=== PATIENT | female | born 1985 | race Two or more races ===

== ENCOUNTER 2020-06-22 13:20 | Outpatient (CLI) | payer OTHER ==
--- NOTE | 2020-06-24 09:01 | MRI Report ---
PROCEDURE: Cervical Spine W/O INDICATIONS: LOW BACK PAIN TECHNIQUE: Noncontrast sagittal T1 spin echo and T2 fast spin echo, sagittal STIR, foraminal oblique sagittal T2 fast spin echo, and axial gradient echo or T2 fast spin echo through the cervical spine. COMPARISON: None. FINDINGS: Image quality: Excellent. Alignment and Curvature: Normal cervical spine vertebral body height and alignment. Bone Marrow: Marrow demonstrates normal overall signal. Spinal Cord: Visualized spinal cord has normal size and signal. No cerebellar tonsillar herniation. Regional Soft Tissues: No paravertebral masses. Prevertebral soft tissues are normal in thickness. C2-C3: Normal in appearance. C3-C4: Normal in appearance. C4-C5: Normal in appearance. C5-C6: Normal in appearance. C6-C7: Mild left neural foraminal stenosis due to uncovertebral spurring. No spinal canal or right ne ural foraminal stenosis. C7-T1: Normal in appearance. IMPRESSION: Mild neuroforaminal stenosis on the left at C6-C7. Otherwise normal MRI of the cervical spine. Reviewed by: Villa Rosado MD on 06/24/2020 9:00 AM PST Approved by: Villa Rosado MD on 06/24/2020 9:00 AM PST Station ID: [id number]
--- NOTE | 2020-06-24 09:03 | MRI Report ---
PROCEDURE: Thoracic Spine W/O INDICATIONS: Low back pain TECHNIQUE: Noncontrast sagittal T1 spine echo and T2 fast spin echo, sagittal STIR, axial T1 and T2 fast spin ec ho through the thoracic spine. COMPARISON: None. FINDINGS: Image quality: Excellent. Alignment and Curvature: There is normal bony alignment. Bone Marrow: Marrow is of normal overall signal. No acute vertebral body compression fractures. Spinal Cord: Visualized spinal cord is normal in size and signal. Regional Soft Tissues: Prevertebral and paraspinous soft tissues are within normal limits. The includ ed unenhanced upper abdominal visceral structures demonstrate no gross abnormality. Miscellaneous: On axial images, central canal and foramina appear widely patent at all scanned level s. IMPRESSION: Unremarkable thoracic spine MRI. Reviewed by: Villa Rosado MD on 06/24/2020 9:01 AM PST Approved by: Villa Rosado MD on 06/24/2020 9:01 AM PST Station ID: [id number]
--- NOTE | 2020-06-24 09:06 | MRI Report ---
PROCEDURE: Lumbar Spine W/O INDICATIONS: LOW BACK PAIN TECHNIQUE: Noncontrast sagittal T1 spin echo and T2 fast echo, sagittal STIR, axial T1 and T2 fast spin echo thr ough the lumbar spine. In cases with scoliosis, additional coronal T2 fast spin echo may be performe d. COMPARISON: None. FINDINGS: Image quality: Excellent. Alignment and Curvature: Normal lumbar vertebral body height and alignment. The lowest fully formed i ntervertebral disc is assigned the L5-S1 disc examination, and the remaining levels are numbered acco rdingly. Please bear this in mind when correlating for a corresponding radicular symptoms or if plann ing intervention. Bone Marrow: Marrow is of normal overall signal. No acute vertebral body compression fractures. Spinal Cord: Conus medullaris terminates at the normal level. Visualized cord demonstrates normal s ignal and size. Region Soft Tissues: No paravertebral or paraspinous soft tissue abnormality. T12-L1: No spinal canal or neural foraminal stenosis. L1-L2: No spinal canal or neural foraminal stenosis. L2-L3: No spinal canal or foraminal stenosis. L3-L4: Disc desiccation and mild disc height loss. Circumferential disc bulge flattens the ventral thecal sac due to disc material abuts but does not obviously displace the descending right L4 nerve r oots within the right subarticular zone. Foraminal components of the disc bulge combine with facet hy pertrophy to produce mild bilateral neural foraminal stenosis. L4-L5: Disc desiccation and mild disc height loss. Small posterior annular fissure (series 501 imag e 8). Diffuse disc bulge without mass effect upon the traversing L5 nerve roots. Foraminal components with disc bulge combine with facet hypertrophy to produce mild bilateral neural foraminal stenosis. L5-S1: No spinal canal or neural foraminal stenosis. IMPRESSION: Mild degenerative changes in the lower lumbar spine without evidence of focal nerve root impingement. Reviewed by: Villa Rosado MD on 06/24/2020 9:04 AM PST Approved by: Villa Rosado MD on 06/24/2020 9:04 AM PST Station ID: [id number]
== END 2020-06-22 13:21 | disposition home or self-care (01) ==
LOC: DI 13:20
PROVIDERS: ATTEND Student in an Organized Health Care Education/Training Program
DX: M48.02 Spinal stenosis, cervical region (principal); M51.36 Other intervertebral disc degeneration, lumbar region; M48.061 Spinal stenosis, lumbar region without neurogenic claudication
CPT/HCPCS: 72141; 72146; 72148

== ENCOUNTER 2024-01-22 09:23 | Outpatient (CLI) | payer OTHER ==
--- NOTE | 2024-01-24 08:00 | MRI Report ---
PROCEDURE: Lumbar Spine WO INDICATIONS: LOW BACK PAIN, NUMBNESS AND TINGLING TECHNIQUE: Noncontrast sagittal T1 spin echo and T2 fast echo, sagittal STIR, axial T1 and T2 fast spin echo thr ough the lumbar spine. In cases with scoliosis, additional coronal T2 fast spin echo may be performe d. COMPARISON: None. FINDINGS: Image quality: Excellent. Alignment and Curvature: There is normal bony alignment. Bone Marrow: Marrow is of normal overall signal. No acute vertebral body compression fractures. Spinal Cord: Conus medullaris terminates at the top of L2 level. Visualized cord demonstrates alex l signal and size. Paraspinous Soft Tissues: No paravertebral masses. T12-L1: Normal in appearance. L1-L2: Normal in appearance. L2-L3: Mild facet hypertrophy. No canal stenosis or foraminal stenosis. L3-L4: Disc bulge. Mild facet hypertrophy. No canal stenosis or foraminal stenosis. L4-L5: Right foraminal annulus tear without foraminal narrowing. Disc bulge. Facet hypertrophy. No canal stenosis or foraminal stenosis.. L5-S1: Disc bulge. Facet hypertrophy. No canal stenosis or foraminal stenosis. IMPRESSION: 1. Multilevel facet arthropathy. 2. No canal stenosis or foraminal stenosis. Reviewed by: Jesus Smith MD on 01/24/2024 7:59 AM PDT Approved by: Jesus Smith MD on 01/24/2024 7:59 AM PDT Station ID: [id number]
== END 2024-01-22 09:24 | disposition home or self-care (01) ==
LOC: DI 09:23
PROVIDERS: ATTEND Physician Assistant
DX: M47.816 Spondylosis without myelopathy or radiculopathy, lumbar region (principal); M51.36 Other intervertebral disc degeneration, lumbar region; M47.817 Spondylosis without myelopathy or radiculopathy, lumbosacral region; M51.37 Other intervertebral disc degeneration, lumbosacral region